=== PATIENT | male | born 1985 | race Caucasian/White ===

== ENCOUNTER 2022-07-07 13:32 | Emergency (ER) | payer BC, SELFPAY ==
--- NOTE | ~2022-07-07 | XR_ITS ---
EXAMINATION: XR chest 2V DATE: 07/07/2022 14:01 INDICATION: Left chest pain. TECHNIQUE: Frontal and lateral views of the chest were obtained. COMPARISON: None. FINDINGS: The chest demonstrates clear lungs without pneumonia, pleural effusion, or pneumothorax. Th e heart size is normal. IMPRESSION: 1. No acute cardiopulmonary disease. Reviewed, dictated and finalized at location A.
--- NOTE | 2022-07-07 13:34 | ECG_ITS ---
Measurements Intervals [place] Rate: 77 P: 81 SC: 169 QRS: 73 QRSD: 93 T: 37 QT: 378 QTc: 429 Interpretive Statements SINUS RHYTHM WITH SINUS ARRHYTHMIA POSSIBLE RIGHT ATRIAL ENLARGEMENT [0.25mV P WAVE] NO PREVIOUS ECG AVAILABLE FOR COMPARISON Electronically Signed On 07-07-2022 18:22:22 CDT by Paulina Adames M.D.
[2022-07-07 13:35] VITALS: BP 154/88; PULSE 85; RESP 16; TEMP 36.9; O2SAT 100
[2022-07-07 13:58] LABS: Basophils Absolute Auto 0.1 K/mm3 (0.0-0.1); Basophils Percent Auto 0.9 % (0.2-1.2); Eosinophils Percent Auto 0.7 % (0-4.4); Hematocrit 46.3 % (42.0-52.0); Hemoglobin 15.5 g/dL (14.0-18.0); Immature Granulocyte Absolute 0.01 K/mm3 (0.00-0.031); Immature Granulocyte Percent A 0.2 % (0-0.5); Lymphocytes Absolute Auto 2.07 K/mm3 (0.9-3.2); Lymphocytes Percent Auto 35.7 % (18.3-44.2); Mean Corpuscular HGB Conc 33.5 g/dl (32-36); Mean Corpuscular Hemoglobin 29.6 pg (26-34); Mean Corpuscular Volume 88.5 fl (80-100); Mean Platelet Volume 11.5 fl (7.4-10.4); Monocytes Absolute Auto 0.4 K/mm3 (0.1-0.6); Monocytes Percent Auto 7.6 % (2.6-8.5); Neutrophils Absolute Auto 3.2 K/mm3 (1.3-6.7); Neutrophils Percent Auto 54.9 % (45.5-73.1); Platelet Count Result 230 k/mm3 (150-375); Red Blood Count 5.23 M/mm3 (4.6-6.20); Red Cell Distribution Width 12.1 % (11.5-14.5); White Blood Count 5.8 K/mm3 (4.5-10.0)
[2022-07-07 14:09] LABS: INR 1.2; Prothrombin Time 14.2 Seconds (11.1-14.7)
[2022-07-07 14:10] LABS: Alanine Aminotransferase 43 U/L (6-50); Albumin Level 4.7 g/dL (3.5-5.1); Alkaline Phosphatase 55 U/L (38-126); Anion Gap 11 mmol/L (8-16); Aspartate Amino Transferase 37 U/L (17-59); Bilirubin,Total 0.7 mg/dL (0.2-1.3); Blood Urea Nitrogen 20 mg/dL (9-20); Calcium 8.8 mg/dL (8.4-10.2); Carbon Dioxide 26 mmol/L (22-30); Chloride 102 mmol/L (98-107); Estimated CRCL calculation 96 ml/min; Estimated Glomerular Filt Rate > 60; Glucose 132 mg/dL (65-110); Lipase 66 U/L (23-300); Partial Thromboplastin Time 26.6 SECONDS (22.3-36.8); Potassium 3.4 mmol/L (3.4-5.0); Sodium 139 mmol/L (137-145)
[2022-07-07 14:21] LABS: Troponin I < 0.012 ng/mL (0.000-0.034)
[2022-07-07 17:18] LABS: Troponin I < 0.012 ng/mL (0.000-0.034)
[2022-07-07 19:41] VITALS: BP 142/93; PULSE 69; RESP 18; O2SAT 100
--- NOTE | 2022-07-07 19:52 | ED.GENADULT ---
HPI - General Adult General Chief complaint: Chest Pain Stated complaint: chest pain Time Seen by Provider: 07/07/22 19:33 History of Present Illness HPI narrative: Patient is a 37-year-old gentleman who presents the emergency department with chief complaint of left-sided chest pain. Patient reports that about a week ago he had a sensation of the left side of his chest that he described as a tightness feeling patient states it feels like a muscle ache but feels deeper than a muscle ache. Patient reports the pain is nonradiating but reports that he has had an 2 episodes totally of feeling lightheaded with these episodes. Patient reports that the pain does not radiate to his arm denies diaphoresis reports no significant past medical history. Patient reports that he is active and lifts weights Related Data Home Medications Medication Instructions Recorded Confirmed ciprofloxacin HCl 500 mg tablet 500 mg PO Q12H 02/27/21 imiquimod 5 % topical cream packet 1 applic topical .nightly rash 02/27/21 Allergies Allergy/AdvReac Type Severity Reaction Status Date / Time No Known Allergies Allergy Unverified 02/27/21 08:30 Review of Systems Review of Systems: A 10 system review of systems was completed on the patient and is negative except for what is stated in the HPI. Nursing and ancillary documentation was reviewed. PMFSH Past Medical History Medical History Frequent headaches Ruptured lumbar disc 06/09/2020 Tonsillectomy planned Surgical History Surgical History [place] teeth removed Family History Family History Sibling Alcohol abuse Hypertension Depression Anxiety Father Diabetes mellitus Hypertension Mother Asthma Hypertension Depression Anxiety Social History Social History Smoking status: Never smoker Second hand tobacco smoke exposure: No Alcohol intake: never Substance use: never Living arrangements: with family Additional living arrangements comments: and 2 sons that live with him from shared custody Occupation/Education: occupation Additional occupation/education comments: [place] Gender identity (if verbalized by the patient): Male Exam Narrative: GENERAL: Well-appearing, well-nourished, and in no acute distress. HEAD: Normocephalic, atraumatic. EYES: PERRLA and EOMI. ENT: Nares clear, no rhinorrhea or epistaxis. Mucous membranes moist. NECK: Supple. CHEST: Clear to auscultation. No respiratory distress. There is mild tenderness to palpation on the left anterior chest wall no crepitance noted HEART: Regular rate and rhythm. No murmur heard. Normal peripheral pulses. ABDOMEN: Soft, nontender, nondistended, normal active bowel sounds. EXTREMITIES: Normal range of motion. No edema. SKIN: Warm, dry, no rash. NEURO: No focal deficits. Alert and oriented x3. PSYCH: Normal mood and affect. Course Vital Signs Vital signs: Vital Signs Temperature 36.9 C 07/07/22 13:35 Pulse Rate 85 07/07/22 13:35 Respiratory Rate 16 07/07/22 13:35 Blood Pressure 154/88 H 07/07/22 13:35 Pulse Oximetry 100 07/07/22 13:35 Oxygen Delivery Room Air 07/07/22 13:35 Temperature 36.9 C 07/07/22 13:35 Pulse Rate 69 07/07/22 19:41 Respiratory Rate 18 07/07/22 19:41 Blood Pressure 142/93 H 07/07/22 19:41 Pulse Oximetry 100 07/07/22 19:41 Oxygen Delivery Room Air 07/07/22 13:35 Medical Decision Making [facility] Narrative Medical decision making narrative: Differential diagnosis includes musculoskeletal chest pain, ACS, NSTEMI, pneumothorax, peptic ulcer disease, reflux. EKG normal sinus rhythm rate of [address] elevation or ST depression Patient had laboratory studies started
[2022-07-07] MEDS: KETOROLAC (*BKC) 60 MG/2 ML VIAL IM (19:56)
[2022-07-07 20:18] LABS: Troponin I < 0.012 ng/mL (0.000-0.034)
[2022-07-07 21:11] VITALS: BP 140/62; PULSE 76; RESP 18; O2SAT 99
== END 2022-07-07 21:12 | disposition home or self-care (01) ==
PROVIDERS: Emergency Medicine; Emergency Provider Emergency Medicine; PCP Internal Medicine
DX: R07.89 Other chest pain (principal); R94.31 Abnormal electrocardiogram [ECG] [EKG]
CPT/HCPCS: 36415; 71046; 80053; 83690; 84484; 85025; 85610; 85730; 93005; 96372; 99284; J1885

== ENCOUNTER 2022-07-16 11:43 | Outpatient (CLI) | payer BC, SELFPAY ==
[2022-07-16 14:06] LABS: Cholesterol 146 mg/dL (0-200); HDL Direct 49 mg/dL; Triglycerides 66 mg/dL (<150)
[2022-07-16 14:26] LABS: LDL Cholesterol Direct 77 mg/dL
== END 2022-07-16 11:44 | disposition home or self-care (01) ==
LOC: ANHGOSHLAB 11:44
PROVIDERS: PCP Internal Medicine; Visit Provider Nurse Practitioner
DX: Z13.220 Encounter for screening for lipoid disorders (principal)
CPT/HCPCS: 36415; 80061